=== PATIENT | female | born 1945 | race Caucasian/White ===

== ENCOUNTER 2020-01-17 14:16 | Emergency (ER) | payer MEDICARE, SELFPAY ==
[2020-01-17 14:35] VITALS: BP 156/88; PULSE 64; RESP 14; TEMP 35.9; O2SAT 98; BMI 35.9
--- NOTE | 2020-01-17 15:01 | USCV_ITS ---
Torrey Evelia Age: 74 Gender: F : 1945 Exam Date: 01/17/2020 15:11 Ordering Phys: Irma Espinoza Technologist: Jackie Ennis Exam Location: [facility] – [place] Indication: PAIN POST KNEE REPLACEMENT PROCEDURES: Venous duplex imaging was performed in only the right lower extremity. The following venous structures were evaluated: common femoral vein, profunda vein, proximal portion of the greater saphenous vein, superficial femoral vein, and the popliteal vein. In addition, the posterior tibial and peroneal trunk were evaluated. FINDINGS: Normal 2-D Doppler and augmentation and compressibility throughout the lower extremity venous structures. Additional imaging through the proximal calf veins also reveals no thrombus. Limited evaluation of the greater saphenous vein is patent with no thrombus. CONCLUSIONS No DVT right lower extremity. Dr. Connie Arteaga DO (Electronically Signed) Final Date: 17 January 2020 16:20 S
--- NOTE | 2020-01-17 15:06 | ED_ITS ---
HPI - Extremity Problem General: Chief complaint: General Medical Stated complaint: knee swelling post surgery x 2 weeks Time Seen by Provider: 01/17/20 14:46 Source: patient Mode of arrival: ambulatory Limitations: no limitations History of Present Illness: HPI Narrative: Patient is a nice 74-year-old female presents to ED today with a complaint of right lower extremity swelling. Patient had a TKA performed [address] Pineda at [facility] in [facility]. She states approximately 5-6 days ago she began noticing swelling to her lower extremity. She has not had any chest pain, shortness of breath, difficulty breathing. She has not noticed any change in redness or warmth to the joint itself. Patient states she contacted their office today who recommended she come to the emergency department for evaluation for DVT. Patient also tells me she has been increasing the amount of fluids she has been drinking however has noticed a decreased urine output. She is concerned because she has several family members diagnosed with kidney disease. MD Complaint: extremity swelling Location: right and lower extremity Associated symptoms: Deny chest pain or fever(s) Context: recent surgery/procedure Review of Systems Const: Denies: fever(s), chills or body aches Card: Denies: chest pain Resp: Denies: dyspnea Musc: Reports: extremity swelling (R LE) PFS ED PFSH: Family History Other CAD (coronary artery disease) Cancer Diabetes Hypertension Physical Exam Const: COMMON NORMALS: no acute distress, patient oriented x3, no limitations and alert Extremity: RIGHT LOWER EXTREMITY: Yes lower leg OTHER: pt has noticeable swelling to R LE when compared to her left; she has palpable DP/PT pulses; cap refill normal Neuro: COMMON NORMALS: patient oriented x3 SENSORIUM/ORIENTATION: Yes alert Skin: OTHER: pt has very mild redness to lateral incision of R knee; she states this has been present sine the surgery and not worsening; she has no heat to the joint; dressing in place and incision looks clean and infection free; pt with good ROM of joint Course Vital Signs: Vital signs: Vital Signs Temperature 96.7 F L 01/17/20 14:35 Pulse Rate 86 01/17/20 17:01 Respiratory Rate 18 01/17/20 17:01 Blood Pressure 154/87 01/17/20 17:01 Pulse Oximetry 96 01/17/20 17:01 MDM - Extremity (Nontraumatic) MDM Narrative: Medical decision making narrative: no DVT present; no signs of infected joint; labs look good; vitals stable; recommend she followup with her orthopedic surgeon; return to ED precautions given Lab Data: Labs: Lab Results 01/17/20 01/17/20 Range/Units 15:31 15:31 WBC 8.1 (4.0-10.0) 10^3/ uL RBC 3.52 L (4.1-5.3) 10^6/u L Hgb 10.4 L (11.5-15.3) g/dL Hct 33.4 L (37.0-47.0) % MCV 94.9 (81-99) fL MCH 29.5 (28.0-34.0) pg MCHC 31.1 (30.0-36.0) g/dL RDW 14.1 (12.1-15.1) % Plt Count 287 (130-400) 10^3/c mm MPV 10.3 (7.4-10.4) fL Neut % (Auto) 62.2 % Lymph % (Auto) 29.5 % [place] % (Auto) 6.1 % Eos % (Auto) 1.5 % Baso % (Auto) 0.6 % Neut # (Auto) 5.06 (1.8-7.7) 10^3/u L Lymph # (Auto) 2.4 (0.8-4.8) 10^3/u L [place] # (Auto) 0.5 (0.2-0.9) 10^3/u L Eos # (Auto) 0.1 (0.0-0.8) 10^3/u L Baso # (Auto) 0.1 (0.0-0.1) 10^3/u L Nucleated RBC % (a uto) 0 % Nucleated RBCs # 0.0 /100WBC Sodium 140 (136-145) mmol/L Potassium 4.1 (3.5-5.1) mmol/L Chloride 106 (98-107) mmol/L Carbon Dioxide 28 (22-29) mmol/L Anion Gap 10.1 (5-19) BUN 16 (8-23) mg/dL Creatinine 0.7 (0.5-0.9) mg/dL GFR Calculation Not Reportable Glucose 106 (65-115) mg/dL Calculated Osmolal ity 287 (285-295) mOsm/k g Calcium 8.5 (8.5-10.5) mg/dL Total Bilirubin 0.2 (0.15-1.2) mg/dL AST 23 (0-32) U/L ALT 17 (0-33) U/L Alkaline Phosphata se 90 (35-105) IU/L Total Protein 6.2 L (6.6-8.7) g/dL Albumin 4.1 (3.5-5.2) g/dL Globulin 2.1 (1.3-4.6) g/dL Imaging Data^: R LE venous US: Radiologist's impression: [address] [address] Ultrasound Report Signed Patient: Evelia HirschUnit #: [id number] : 1945cct#:[id number] Age/Sex: 74 / FADM Date: 01/17/20 Loc: [facility]/Bed: Attending Dr: Ordering Provider/Ordering MD: Irma Espinoza Date of Service: 01/17/20 Procedure(s): [place] [address] Accession Number(s): [id number] Report Number: [id number] Evelia Hirsch Age: 74 Gender: F : 1945 Exam Date: 01/17/2020 15:11 Ordering Phys: Irma Espinoza Technologist: Jackie Ennis Exam Location: [facility] [place] [facility] [place] Indication: PAIN POST KNEE REPLACEMENT PROCEDURES: Venous duplex imaging was performed in only the right lower extremity. The following venous structures were evaluated: common femoral vein, profunda vein, proximal portion of the greater saphenous vein, superficial femoral vein, and the popliteal vein. In addition, the posterior tibial and peroneal trunk were evaluated. FINDINGS: Normal 2-D Doppler and augmentation and compressibility throughout the lower extremity venous structures. Additional imaging through the proximal calf veins also reveals no thrombus. Limited evaluation of the greater saphenous vein is patent with no thrombus. CONCLUSIONS No DVT right lower extremity. Dr. Connie Arteaga DO (Electronically Signed) Final Date: 17 January 2020 16:20 S Discharge Plan Discharge Patient Disposition: Home Clinical Impression: Right leg swelling Condition: Stable Prescriptions: No Action levothyroxine 100 mcg capsule 100 mcg PO DAILY RF: 0 nitroglycerin [Nitrostat] 0.4 mg tablet, sublingual 0.4 mg SUBLINGUAL Q5M PRN (Reason: chest pains) RF: 0 meclizine 25 mg tablet 25 mg PO DAILY PRN (Reason: n/v) RF: 0 benzonatate [Tessalon Perles] 100 mg capsule 100 mg PO TID RF: 0 albuterol sulfate 90 mcg/actuation HFA aerosol inhaler 2 puff INHALATION Q6H PRN (Reason: Shortness Of Breath) RF: 0 aspirin [Aspir-Low] 81 mg tablet,delayed release (DR/EC) 81 mg PO DAILY 90 Days Qty: 90 RF: 3 clopidogrel 75 mg tablet 75 mg PO DAILY 90 Days Qty: 90 RF: 3 pravastatin 10 mg tablet 10 mg PO DAILY 90 Days Qty: 90 RF: 3 carvedilol 3.125 mg tablet 3.125 mg PO BID Qty: 60 RF: 3 isosorbide mononitrate 30 mg tablet extended release 24 hr 15 mg PO BID Qty: 30 RF: 3 Discharge Orders: Discharge Order (Routine); Ordered 01/17/20 Ordered By: Irma Espinoza Referrals: Shaniqua Cummins MD [Primary Care Provider] - Activity Restrictions/Additional Instructions: As discussed please follow-up with your orthopedic surgeon for further evaluation. Your ultrasound was negative here for blood clot. Please return to the emergency department for worsening swelling, pain, redness, drainage from your incision sites, chest pain, shortness of breath, difficulty breathing, any other concerns you may have. 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
[2020-01-17 15:36] LABS: Basophils # 0.1 10^3/uL (0.0-0.1); Basophils % 0.6 %; Eosinophils # 0.1 10^3/uL (0.0-0.8); Eosinophils % 1.5 %; Hematocrit 33.4 % (37.0-47.0); Hemoglobin 10.4 g/dL (11.5-15.3); Lymphocytes # 2.4 10^3/uL (0.8-4.8); Lymphocytes % 29.5 %; Mean Corpuscular HGB Conc 31.1 g/dL (30.0-36.0); Mean Corpuscular Hemoglobin 29.5 pg (28.0-34.0); Mean Corpuscular Volume 94.9 fL (81-99); Mean Platelet Volume 10.3 fL (7.4-10.4); Monocytes # 0.5 10^3/uL (0.2-0.9); Monocytes % 6.1 %; Neutrophils # 5.06 10^3/uL (1.8-7.7); Neutrophils % 62.2 %; Nucleated Red Blood Cells % 0 %; Platelet Count 287 10^3/cmm (130-400); Red Blood Count 3.52 10^6/uL (4.1-5.3); Red Cell Distribution Width 14.1 % (12.1-15.1); White Blood Count 8.1 10^3/uL (4.0-10.0)
[2020-01-17 16:01] LABS: Alanine Aminotransferase 17 U/L (0-33); Albumin Level 4.1 g/dL (3.5-5.2); Alkaline Phosphatase 90 IU/L (35-105); Anion Gap 10.1 (5-19); Aspartate Amino Transferase 23 U/L (0-32); Blood Urea Nitrogen 16 mg/dL (8-23); Calcium 8.5 mg/dL (8.5-10.5); Carbon Dioxide 28 mmol/L (22-29); Chloride 106 mmol/L (98-107); Globulin 2.1 g/dL (1.3-4.6); Glucose 106 mg/dL (65-115); Osmolality Calculated 287 mOsm/kg (285-295); Potassium 4.1 mmol/L (3.5-5.1); Sodium 140 mmol/L (136-145); Total Bilirubin 0.2 mg/dL (0.15-1.2); Total Protein 6.2 g/dL (6.6-8.7)
[2020-01-17 17:01] VITALS: BP 154/87; PULSE 86; RESP 18; O2SAT 96
== END 2020-01-17 16:55 | disposition home or self-care (01) ==
PROVIDERS: Emergency Provider Physician Assistant; PCP Pediatrics
DX: M79.89 Other specified soft tissue disorders (principal); Z79.82 Long term (current) use of aspirin; Z79.02 Long term (current) use of antithrombotics/antiplatelets
CPT/HCPCS: 12345; 80053; 85025; 93971; 99281; 99282

== ENCOUNTER → 2021-11-06 10:03 | Outpatient (BNVA) | payer MEDICARE, SELFPAY | PROVIDERS: PCP Pediatrics; Visit Provider Internal Medicine Cardiovascular Disease | DX: I25.10 Atherosclerotic heart disease of native coronary artery without angina pectoris (principal); E78.5 Hyperlipidemia, unspecified; I10 Essential (primary) hypertension; E03.9 Hypothyroidism, unspecified; K21.9 Gastro-esophageal reflux disease without esophagitis | CPT/HCPCS: 99214 ==

== ENCOUNTER → 2022-11-05 09:10 | Outpatient (BNVA) | payer MEDICARE, SELFPAY | PROVIDERS: PCP Pediatrics; Visit Provider Internal Medicine Cardiovascular Disease | DX: I25.10 Atherosclerotic heart disease of native coronary artery without angina pectoris (principal); E78.5 Hyperlipidemia, unspecified; I10 Essential (primary) hypertension; E03.9 Hypothyroidism, unspecified; K21.9 Gastro-esophageal reflux disease without esophagitis | CPT/HCPCS: 99214 ==

== ENCOUNTER → 2023-10-28 09:08 | Outpatient (BNVA) | payer MEDICARE, SELFPAY | PROVIDERS: PCP Pediatrics; Visit Provider Nurse Practitioner Family | DX: I25.10 Atherosclerotic heart disease of native coronary artery without angina pectoris (principal); I10 Essential (primary) hypertension | CPT/HCPCS: 99214 ==

== ENCOUNTER → 2024-10-16 13:53 | Outpatient (BNVA) | payer MEDICARE, SELFPAY | PROVIDERS: PCP Pediatrics; Visit Provider Internal Medicine | DX: I25.10 Atherosclerotic heart disease of native coronary artery without angina pectoris (principal); E78.5 Hyperlipidemia, unspecified; I10 Essential (primary) hypertension; E03.9 Hypothyroidism, unspecified; K21.9 Gastro-esophageal reflux disease without esophagitis | CPT/HCPCS: 99213 ==